=== PATIENT | female | born 1975 | race Caucasian/White ===

== ENCOUNTER 2019-08-07 12:56 | Emergency (ER) | payer SELFPAY ==
[~2019-08-07] VITALS: Ht 154.9 cm; Wt 61.2 kg
[2019-08-07 14:23] LABS: BILIRUBIN,URINE NEGATIVE (NEGATIVE); CLARITY,URINE CLEAR (CLEAR); COLOR,URINE YELLOW (YELLOW); KETONES,URINE NEGATIVE (NEGATIVE); LEUKOCYTE ESTERASE ,URINE TRACE (NEGATIVE); NITRITE,URINE NEGATIVE (NEGATIVE); PROTEIN,URINE DIPSTICK NEGATIVE (NEGATIVE); URINE UROBILINOGEN 0.2 mg/dL (0.2 - 1)
[2019-08-07 14:32] LABS: PREGNANCY TEST, URINE NEGATIVE (NEGATIVE)
[2019-08-07 14:42] LABS: BACTERIA,URINE RARE /HPF; EPITHELIAL CELLS,URINE FEW /LPF; RBC,URINE 0-5 /HPF (0-5); WBC,URINE (MAN) 0-5 /HPF (0-5)
== END 2019-08-07 15:30 | disposition left against medical advice (07) ==
LOC: ER 12:56
DX: Z53.21 Procedure and treatment not carried out due to patient leaving prior to being seen by health care provider (principal)
CPT/HCPCS: 81001; 81025

== ENCOUNTER 2020-11-20 18:29 | Emergency (ER) | payer OTHER ==
[~2020-11-20] VITALS: Ht 154.9 cm; Wt 61.2 kg
[2020-11-20 21:18] LABS: BASOPHILS # (AUTO) 0.1 (0.0-0.1); BASOPHILS % 0.7 % (0.0-1.0); EOSINOPHILS # (AUTO) 0.1 (0.0-0.4); EOSINOPHILS % 1.3 % (0.0-6.0); HEMATOCRIT 43.2 % (34.2-44.1); HEMOGLOBIN 14.9 g/dL (12.0-16.0); LYMPHOCYTES # (AUTO) 2.6 (1.0-3.2); LYMPHOCYTES % 28.4 % (18.0-39.1); MEAN CORPUSCULAR HEMOGLOBIN 30.1 pg (28-32); MEAN CORPUSCULAR HGB CONC 34.5 g/dL (31-35); MEAN CORPUSCULAR VOLUME 87.3 fL (81-99); MONOCYTES # (AUTO) 0.6 (0.2-0.8); MONOCYTES % 6.3 % (4.4-11.3); NEUTROPHILS # (AUTO) 5.7 (2.1-6.9); NEUTROPHILS % 63.1 % (38.7-80.0); PLATELET COUNT 259 x10e3/uL (140-360); RED BLOOD COUNT 4.95 x10e6/uL (3.6-5.1); RED CELL DISTRIBUTION WIDTH 12.1 % (11.7-14.4)
[2020-11-20 21:23] LABS: CLARITY,URINE HAZY (CLEAR); COLOR,URINE YELLOW (YELLOW); KETONES,URINE NEGATIVE (NEGATIVE); LEUKOCYTE ESTERASE ,URINE NEGATIVE (NEGATIVE); NITRITE,URINE NEGATIVE (NEGATIVE); PROTEIN,URINE DIPSTICK NEGATIVE (NEGATIVE); URINE UROBILINOGEN 1 mg/dL (0.2 - 1)
[2020-11-20 21:32] LABS: ALBUMIN 3.9 g/dL (3.5-5.0); ALBUMIN/GLOBULIN RATIO 1.3 (0.8-2.0); CALCIUM 8.9 mg/dL (8.4-10.2); CREATININE, SERUM 1.02 mg/dL (0.57-1.11)
[2020-11-20 21:34] LABS: BACTERIA,URINE MANY /HPF; EPITHELIAL CELLS,URINE RARE /LPF; RBC,URINE 0-5 /HPF (0-5)
[2020-11-20 21:51] LABS: CREATINE KINASE MB 0.9 ng/mL (0-5.0)
[2020-11-20] MEDS ORDERED: MECLIZINE HCL 12.5 MG TAB PO ONE (22:15)
[2020-11-20 23:25] VITALS: BP 126/93
== END 2020-11-20 23:40 | disposition home or self-care (01) ==
LOC: ER 19:21
DX: S06.0X0A Concussion without loss of consciousness, initial encounter (principal); S40.012A Contusion of left shoulder, initial encounter; W01.0XXA Fall on same level from slipping, tripping and stumbling without subsequent striking against object, initial encounter; Y92.000 Kitchen of unspecified non-institutional (private) residence as the place of occurrence of the external cause
CPT/HCPCS: 36415; 70450; 71045; 73030; 80053; 81001; 82550; 82553; 84484; 85025; 93005; 99284; J8597

== ENCOUNTER 2020-12-08 08:37 | Emergency (ER) | payer SELFPAY ==
[~2020-12-08] VITALS: Ht 154.9 cm; Wt 61.2 kg
[2020-12-08] MEDS ORDERED: DIAZEPAM 5 MG TAB PO SCH (09:15)
[2020-12-08] MEDS ORDERED: KETOROLAC TROMETHAMINE 60 MG/2 ML VIAL IM ONE (09:15)
[2020-12-08] MEDS ORDERED: LIDOCAINE 4% PATCH TP SCH (09:15)
[2020-12-08 10:17] LABS: AMPHETAMINES SCREEN,URINE NEGATIVE (NEGATIVE); BENZODIAZEPINES SCREEN,URINE NEGATIVE (NEGATIVE); PHENCYCLIDINE SCREEN,URINE NEGATIVE (NEGATIVE)
[2020-12-08] MEDS ORDERED: ULTRAM50 MG PO (10:29)
[2020-12-08] MEDS ORDERED: VALIUM5 MG PO (10:29)
== END 2020-12-08 10:52 | disposition home or self-care (01) ==
LOC: ER 08:43
DX: S06.0X0A Concussion without loss of consciousness, initial encounter (principal); S43.422A Sprain of left rotator cuff capsule, initial encounter; M75.02 Adhesive capsulitis of left shoulder; W18.30XA Fall on same level, unspecified, initial encounter; H91.3 Deaf nonspeaking, not elsewhere classified
CPT/HCPCS: 70450; 73202; 80307; 99283; J1885

== ENCOUNTER 2024-11-24 13:20 | Emergency (ER) | payer SELFPAY ==
[~2024-11-24 13:20] MED LIST: METOCLOPRAM5 MG/5 ML PO; ULTRAM50 MG PO; VALIUM5 MG PO
== END 2024-11-24 14:10 | disposition short-term general hospital (02) ==
LOC: ER 13:34
DX: S69.90XA Unspecified injury of unspecified wrist, hand and finger(s), initial encounter (principal)